=== PATIENT | male | born 1995 | race Caucasian/White ===

== ENCOUNTER 2019-05-23 12:36 | Emergency (ER) | payer OTHER ==
[~2019-05-23] VITALS: Ht 185.4 cm; Wt 93.0 kg
== END 2019-05-23 14:22 | disposition home or self-care (01) ==
LOC: ER 12:36
DX: M25.561 Pain in right knee (principal); Z87.891 Personal history of nicotine dependence
CPT/HCPCS: 73564; 99283-25

== ENCOUNTER → 2019-06-10 | Outpatient (CLI) | payer OTHER | END | disposition home or self-care (01) | LOC: LAB 17:47 → LAB SHORT 17:47 | DX: R10.13 Epigastric pain (principal); R11.10 Vomiting, unspecified | CPT/HCPCS: 87338 ==

== ENCOUNTER 2019-11-05 17:46 | Emergency (ER) | payer OTHER ==
[~2019-11-05] VITALS: Ht 182.9 cm; Wt 95.2 kg
== END 2019-11-05 21:18 | disposition home or self-care (01) ==
LOC: ER 17:46
DX: M54.6 Pain in thoracic spine (principal); Z87.891 Personal history of nicotine dependence; W01.0XXA Fall on same level from slipping, tripping and stumbling without subsequent striking against object, initial encounter
CPT/HCPCS: 72070; 99283-25; A9270-GY

== ENCOUNTER → 2021-01-21 | Outpatient (CLI) | payer OTHER ==
[2021-01-23 10:24] LABS: CHLAMYDIA TRACHOMATIS, NAA Positive (Negative)
== END | disposition home or self-care (01) ==
LOC: LAB EV 09:54 → LAB SHORT 09:54
PROVIDERS: Physician Assistant Medical
DX: R36.9 Urethral discharge, unspecified (principal)
CPT/HCPCS: 87491; 87591

== ENCOUNTER → 2021-02-14 | Outpatient (CLI) | payer OTHER ==
[2021-02-16 04:19] LABS: CHLAMYDIA TRACHOMATIS, NAA Negative (Negative)
== END | disposition home or self-care (01) ==
LOC: LAB SHORT 09:51 → LAB EV 09:51
PROVIDERS: Physician Assistant Medical
DX: Z09 Encounter for follow-up examination after completed treatment for conditions other than malignant neoplasm (principal); Z86.19 Personal history of other infectious and parasitic diseases
CPT/HCPCS: 87491; 87591